=== PATIENT | male | born 1985 | race Caucasian/White ===

== ENCOUNTER 2019-03-02 12:25 | Emergency (ER) | payer OTHER ==
[~2019-03-02] VITALS: Ht 180.3 cm; Wt 75.0 kg
[~2019-03-02 12:25] MED LIST: CLIN300C53 PO; HYDR-4353 PO
[2019-03-02 12:26] VITALS: BP 137/83
--- NOTE | 2019-03-02 12:34 | NUR ---
ER MD WAS IN TO EXAMINE PT, NO INJURY NOTED TO PT'S PENIS OR HANDS, PER MD
--- NOTE | 2019-03-02 12:37 | NUR ---
MEDICAL CLEARANCE GIVEN PER ER MD. DC INSTRUCTIONS GIVEN TO PATIENT AND DIRECTOR [employer] [id number]. PATIENT PREPARING FOR DEPARTURE WITH [facility].
== END 2019-03-02 12:41 | disposition home or self-care (01) ==
LOC: ER 12:25
DX: Z02.89 Encounter for other administrative examinations (principal); Z13.89 Encounter for screening for other disorder; Z79.2 Long term (current) use of antibiotics; Z79.899 Other long term (current) drug therapy; Z60.2 Problems related to living alone
CPT/HCPCS: 99283

== ENCOUNTER 2020-05-19 20:59 | Emergency (ER) | payer OTHER ==
[~2020-05-19] VITALS: Ht 182.9 cm; Wt 77.2 kg
--- NOTE | 2020-05-19 21:12 | NUR ---
DR PALACIOS IN ROOM NECK VIAUALIZED NO TRAUMA NOTED. IF NEEDED PT CAN RECEIVE EJ DT INACCESSIBLE EXTREMITY VEIN RT IV DRUG USE
[2020-05-19] MEDS ORDERED: normal saline 1000ML IV soln IVB ONE (21:20)
[2020-05-19] MEDS ORDERED: iohexol 350MG/ML 100ml bottle IV ONE (21:22)
[2020-05-19 21:26] LABS: BASOPHILS # (AUTO) 0.1 X10'3 (0-0.2); BASOPHILS % (AUTO) 0.7 % (0-1); EOSINOPHILS # (AUTO) 0.1 X10'3 (0-0.9); EOSINOPHILS % (AUTO) 0.9 % (0-6); HEMATOCRIT 47.5 % (42.0-52.0); HEMOGLOBIN 15.8 g/dl (14.0-17.9); LYMPHOCYTES # (AUTO) 3.9 X10'3 (1.1-4.8); LYMPHOCYTES % (AUTO) 28.6 % (21-51); MEAN CORPUSCULAR HEMOGLOBIN 27.3 PG (27.0-31.0); MEAN CORPUSCULAR HGB CONC 33.2 g/dL (33.0-36.5); MEAN CORPUSCULAR VOLUME 82.3 FL (78-98); MEAN PLATELET VOLUME 6.6 FL (7.4-10.4); MONOCYTES # (AUTO) 1.3 X10'3 (0-0.9); MONOCYTES % (AUTO) 9.8 % (2-12); NEUTROPHILS # (AUTO) 8.3 X10'3 (1.8-7.7); PLATELET COUNT 328 X10'3 (140-440); RED BLOOD COUNT 5.78 X10'6 (4.70-6.10); RED CELL DISTRIBUTION WIDTH 15.7 % (11.5-14.5); WHITE BLOOD COUNT 13.8 X10'3 (4.5-11.0)
[2020-05-19 21:39] LABS: PARTIAL THROMBOPLASTIN TIME 27 SECONDS (22-32)
[2020-05-19 21:41] LABS: ALANINE AMINOTRANSFERASE 250 U/L (12-78); ALBUMIN 3.8 G/DL (3.4-5.0); ALBUMIN/GLOBULIN RATIO 0.8 (1.1-1.5); ALKALINE PHOSPHATASE 84 IU/L (46-116); ANION GAP 8 (8-16); ASPARTATE AMINO TRANSFERASE 71 U/L (10-37); BILIRUBIN,TOTAL 0.6 MG/DL (0.1-1.0); BLOOD UREA NITROGEN 16 MG/DL (7-18); BUN/CREATININE RATIO 20.3 (5.4-32.0); CALCIUM 9.5 MG/DL (8.5-10.1); CHLORIDE 102 MMOL/L (99-107); CREATININE 0.79 MG/DL (0.60-1.10); POTASSIUM 3.6 MMOL/L (3.5-5.1); SODIUM 138 MMOL/L (135-145); TOTAL CARBON DIOXIDE 28.3 MMOL/L (24-32); TOTAL PROTEIN 8.5 G/DL (6.4-8.2); eGFR > 90 ML/MIN
[2020-05-19 21:48] LABS: CREATINE KINASE 59 U/L (39-308)
[2020-05-19 21:49] LABS: GLUCOSE 103 MG/DL (70-104)
[2020-05-19 22:35] VITALS: BP 120/82
== END 2020-05-19 23:21 ==
LOC: ER 20:59 → EEVIPCON 20:59 → ER 23:21
DX: S10.93XA Contusion of unspecified part of neck, initial encounter (principal); T14.91XA Suicide attempt, initial encounter; F11.90 Opioid use, unspecified, uncomplicated; Z60.2 Problems related to living alone; Z79.899 Other long term (current) drug therapy; X83.8XXA Intentional self-harm by other specified means, initial encounter; Y93.89 Activity, other specified; Y92.89 Other specified places as the place of occurrence of the external cause; Y99.8 Other external cause status
CPT/HCPCS: 36415; 70498; 80053; 82550; 83874; 85025; 85610; 85730; 93005; 96360; 99285; J7030; Q9967